=== PATIENT | male | born 1975 | race Caucasian/White ===

== ENCOUNTER 2017-04-05 18:11 | Emergency (ER) | payer SELFPAY ==
[2017-04-05 18:20] VITALS: BP 127/82; PULSE 76; RESP 16; TEMP 99.5; O2SAT 97
--- NOTE | 2017-04-05 18:27 | EDPHY ---
H & P Stated Complaint: L testicle pain Time Seen by Provider: 04/05/17 18:26 - Personal History Current Tetanus/Diphtheria Vaccine: Unsure Current Tetanus Diphtheria and Acellular Pertussis (TDAP): Unsure - Medical/Surgical History Hx Asthma: Yes Hx Chronic Respiratory Disease: No Hx Diabetes: No Hx Cardiac Disease: No Hx Renal Disease: No Hx Cirrhosis: No Hx Alcoholism: No Hx HIV/AIDS: No Hx Splenectomy or Spleen Trauma: No Other PMH: Hand Foot Mouth disease, asthma, - Social History Smoking Status: Never smoked Constitutional: Initial Vital Signs Temperature (C) 37.5 C 04/05/17 18:17 Heart Rate 76 04/05/17 18:17 Respiratory Rate 16 04/05/17 18:17 Blood Pressure 127/82 H 04/05/17 18:17 O2 Sat (%) 97 04/05/17 18:17 O2 Delivery Mode Room Air Allergies/Adverse Reactions: amoxicillin Allergy (Verified 04/05/17 18:16) Home Medications: Medication Instructions Recorded Doxycycline Hyclate 100 mg PO BID #20 tablet 04/05/17 Xopenex 04/05/17 Medical Decision Making - Diagnostics Imaging: Discussed imaging studies w/ scallop shucker Radiologist ED Course/Re-evaluation: CHIEF COMPLAINT: Abdominal and testicular pain HISTORY OF PRESENT ILLNESS: This patient is a healthy 41 year old male complaining of abdominal and scrotal pain onset yesterday. , he was feeling poorly and made an appointment with his primary care provider on Monday. He was diagnosed with hand foot and mouth disease at that time. Yesterday, he developed abdominal and scrotal pain. His discomfort is dull, achy, and constant. His testicles are tender to touch, left more than right, and he thinks the left may be larger. He denies any trauma and cannot identify any provocation. He was last sexually active three months ago. He denies fever, nausea, vomiting, hematuria, dysuria, or other associated symptoms. REVIEW OF SYSTEMS: A 10 point review of systems was performed and is negative with the exception of the elements mentioned in the history of present illness. PHYSICAL EXAM: HR, BP, O2 Sat, RR. Temp noted General Appearance: Alert, well hydrated, appropriate, and non-toxic appearing. Head: Atraumatic without scalp tenderness or obvious injury Eyes: Pupils equal, round, reactive to light and accommodation, EOMI, no trauma , no injection. Throat: Mucus membranes moist. Neck: Supple, nontender, no lymphadenopathy. Respiratory: No retractions, no distress, no wheezes, and no accessory muscle use. Lungs are clear to auscultation bilaterally. Cardiovascular: Regular rate and rhythm, no murmurs, rubs, or gallops. Good capillary refill all extremities. Gastrointestinal: Abdomen is soft, nontender, non-distended, no masses, no rebound, no guarding, no peritoneal signs. Genitourinary: Left greater than right tenderness to spermatic cord. Musculoskeletal: Normal active ROM of all extremities, atraumatic. Neurological: Alert, appropriate, and interactive. Nonfocal neuro exam. Skin: No rashes, good turgor, no nodules on palpation. Past medical history: Asthma. Recent diagnosis of hand foot mouth disease. Past surgical history: Noncontributory Family history: Noncontributory Social history: Lives in [place]. Single. Nonsmoker. DIFFERENTIAL DIAGNOSIS: The differential diagnosis for the patient's abdominal and testicular pain included but was not limited to hernias, testicular torsion, urinary tract infection, epididymitis, varicocele, hydrocele. MEDICAL DECISION [age]IN41 year old male presents with bilateral testicular pain. Exam reveals tenderness bilaterally, left greater than right. No evidence of masses or torsion on exam. Plan for testicular US. Plan for UA including GC/chlamydia. 20:[address] Whitehead, radiologist. US shows bilateral epididymo- orchitis Plan to administer 250mg IM Ceftriaxone, 100mg PO Doxycycline. Plan to discharge home in good condition with prescription for 100mg Doxycycline bid for 10 days. He will follow up with primary care for further evaluation. Return precautions discussed. GC/chlamydia pending. The patient is comfortable with this plan. - Data Points Laboratory Results: 04/05/17 04/05/17 19:55 19:55 Urine Color YELLOW Urine Appearance HAZY Urine pH 6.0 (5.0-7.5) Ur Specific [place] 1.018 (1.002-1.030) Urine Protein NEGATIVE (NEGATIVE) Urine Ketones NEGATIVE (NEGATIVE) Urine Blood NEGATIVE (NEGATIVE) Urine Nitrate NEGATIVE (NEGATIVE) Urine Bilirubin NEGATIVE (NEGATIVE) Urine Urobilinogen NEGATIVE EU EU (0.2-1.0) Ur Leukocyte Esterase NEGATIVE (NEGATIVE) Urine RBC 3-5 /hpf H /hpf (0-3) Urine WBC 1-3 /hpf /hpf (0-3) Ur Epithelial Cells NONE SEEN /lpf /lpf (NONE-1+) Urine Bacteria TRACE /hpf H /hpf (NONE SEEN) Urine Glucose NEGATIVE (NEGATIVE) C.trachomatis RNA (TMA) Pending N.gonorrhoeae RNA (TMA) Pending Medications Given: Discontinued Medications Ceftriaxone Sodium (Rocephin Im Syringe) 250 mg IM ONCE ONE PRN Reason: Protocol Stop: 04/05/17 20:32 Last Admin: 04/05/17 21:08 Dose: 250 mg Doxycycline Hyclate (Doxycycline Hyclate) 100 mg PO EDNOW ONE PRN Reason: Protocol Stop: 04/05/17 20:32 Last Admin: 04/05/17 21:07 Dose: 100 mg Departure - Departure Disposition: Home, Routine, Self-Care Clinical Impression: Epididymo-orchitis, acute Condition: Good Instructions: Epididymo-Orchitis (ED), Testicle Pain (ED) Additional Instructions: 1. Follow up with your primary care provider for further evaluation. 2. Take doxycycline as prescribed. It is important to finish your entire course of antibiotics even if you are feeling better. 3. Return to the emergency department if you develop increased warmth, swelling , or redness, abnormal discharge, fever, increased pain, uncontrollable vomiting or diarrhea, or other worsening of condition. Referrals: Naga Kate DO [Doctor of Osteopathy] - As per Instructions Prescriptions: Doxycycline Hyclate 100 mg PO BID #20 tablet Report Scribed for: Omar Kruger Report Scribed by: Alejandra Pacheco Date of Report: 04/05/17 Time of Report: 21:20
[2017-04-05 20:10] LABS: COLOR YELLOW; LEUKOCYTE ESTERASE,URINE NEGATIVE (NEGATIVE); NITRITE,URINE NEGATIVE (NEGATIVE)
[2017-04-05 20:12] LABS: BACTERIA TRACE /hpf (NONE SEEN)
[2017-04-05] MEDS ORDERED: CEFTRIAXONE IM 350 MG/ML SYRINGE IM ONE (20:31)
[2017-04-05] MEDS ORDERED: DOXYCYCLINE HYCLATE 100 MG CAP/TAB PO ONE (20:31)
[2017-04-06 12:05] LABS: CHLAMYDIA AMPLIFICATION GENPRB NEGATIVE (NEGATIVE)
== END 2017-04-05 21:27 | disposition home or self-care (01) ==
DX: N45.3 Epididymo-orchitis (principal); J45.909 Unspecified asthma, uncomplicated
CPT/HCPCS: J0696